=== PATIENT | female | born 1930 | race Asian ===

== ENCOUNTER 2018-07-09 14:18 | Inpatient (IN) | payer OTHER ==
[2018-07-09] MEDS: ONDANSETRON (ODT) 4 MG TAB ODT (15:19)
[2018-07-09] MEDS: HYDROmorphONE 0.5 MG/0.5 ML SYG IM (15:20)
[2018-07-09] MEDS ORDERED: SOD CHLORIDE 0.9% 1,000 ML IV (17:32)
[2018-07-09] MEDS ORDERED: ONDANSETRON 4 MG INJ IV (18:00)
[2018-07-09] MEDS ORDERED: ACETAMINOPHEN 325 MG TAB PO (18:00)
[2018-07-09] MEDS ORDERED: HYDROCODONE/APAP (5/325) TAB PO (19:30)
[2018-07-09] MEDS ORDERED: IBUPROFEN 600 MG TAB PO (19:30)
[2018-07-09 19:39] LABS: ADD MAN DIFF? NO
[2018-07-09 19:42] LABS: BASOPHIL # 0.1 10^3/ul (0.0-0.1); BASOPHILS % 0.5 % (0.0-2.0); EOSINOPHILS # 0.1 10^3/ul (0.0-0.5); EOSINOPHILS % 1.4 % (0.0-7.0); HEMATOCRIT 45.6 % (37.0-47.0); HEMOGLOBIN 14.8 g/dl (12.0-16.0); LYMPHOCYTES # 1.5 10^3/ul (0.8-2.9); LYMPHOCYTES % 14.9 % (15.0-51.0); MEAN CORPUSCULAR HEMOGLOBIN 30.1 pg (29.0-33.0); MEAN CORPUSCULAR HGB CONC 32.5 g/dl (32.0-37.0); MEAN CORPUSCULAR VOLUME 92.9 fl (82.0-101.0); MEAN PLATELET VOLUME 9.3 fl (7.4-10.4); MONOCYTE # 0.5 10^3/ul (0.3-0.9); MONOCYTES % 5.5 % (0.0-11.0); NEUTROPHIL # 7.5 10^3/ul (1.6-7.5); NEUTROPHILS % 77.1 % (39.0-77.0); PLATELET COUNT 305 10^3/UL (140-415); RED BLOOD COUNT 4.91 10^6/ul (4.20-5.40); RED CELL DISTRIBUTION WIDTH 13.8 % (11.5-14.5)
[2018-07-09 19:42] LABS: WHITE BLOOD COUNT 9.7 10^3/ul (4.8-10.8)
[2018-07-09 20:03] LABS: ALANINE AMINOTRANSFERASE 16 IU/L (13-69); ALBUMIN 3.8 g/dl (3.3-4.9); ALKALINE PHOSPHATASE 130 IU/L (42-121); ANION GAP 8 (5-13); ASPARTATE AMINO TRANSFERASE 22 IU/L (15-46); BILIRUBIN,INDIRECT 0.7 mg/dl (0-1.1); BILIRUBIN,TOTAL 0.7 mg/dl (0.2-1.3); BLOOD UREA NITROGEN 13 mg/dl (7-20); CALCIUM 10.9 mg/dl (8.4-10.2); CARBON DIOXIDE 25 mmol/L (21-31); CHLORIDE 105 mmol/L (97-110); CREATININE 0.56 mg/dl (0.44-1.00); GLUCOSE 146 mg/dl (70-220); POTASSIUM 4.8 mmol/L (3.5-5.1); SODIUM 138 mmol/L (135-144); TOTAL PROTEIN 7.6 g/dl (6.1-8.1)
[2018-07-09 20:05] LABS: INR 0.99; PROTIME 13.2 Sec (11.9-14.9)
[2018-07-10] MEDS: ACETAMINOPHEN 325 MG TAB PO (03:45)
[2018-07-10 06:09] LABS: ADD MAN DIFF? NO
[2018-07-10 06:26] LABS: BASOPHIL # 0.1 10^3/ul (0.0-0.1); BASOPHILS % 0.4 % (0.0-2.0); EOSINOPHILS # 0.2 10^3/ul (0.0-0.5); EOSINOPHILS % 1.5 % (0.0-7.0); HEMATOCRIT 42.4 % (37.0-47.0); HEMOGLOBIN 14.1 g/dl (12.0-16.0); LYMPHOCYTES # 1.2 10^3/ul (0.8-2.9); LYMPHOCYTES % 11.1 % (15.0-51.0); MEAN CORPUSCULAR HEMOGLOBIN 30.3 pg (29.0-33.0); MEAN CORPUSCULAR HGB CONC 33.3 g/dl (32.0-37.0); MEAN CORPUSCULAR VOLUME 91.2 fl (82.0-101.0); MEAN PLATELET VOLUME 9.6 fl (7.4-10.4); MONOCYTE # 0.8 10^3/ul (0.3-0.9); MONOCYTES % 6.8 % (0.0-11.0); NEUTROPHIL # 8.9 10^3/ul (1.6-7.5); NEUTROPHILS % 79.7 % (39.0-77.0); PLATELET COUNT 308 10^3/UL (140-415); RED BLOOD COUNT 4.65 10^6/ul (4.20-5.40); RED CELL DISTRIBUTION WIDTH 13.9 % (11.5-14.5)
[2018-07-10 06:26] LABS: WHITE BLOOD COUNT 11.2 10^3/ul (4.8-10.8)
[2018-07-10 06:43] LABS: HEMOGLOBIN A1C 7.3 % (0-5.9)
[2018-07-10 07:06] LABS: ALANINE AMINOTRANSFERASE 15 IU/L (13-69); ALBUMIN 3.5 g/dl (3.3-4.9); ALKALINE PHOSPHATASE 114 IU/L (42-121); ANION GAP 8 (5-13); ASPARTATE AMINO TRANSFERASE 23 IU/L (15-46); BILIRUBIN,INDIRECT 0.5 mg/dl (0-1.1); BILIRUBIN,TOTAL 0.5 mg/dl (0.2-1.3); BLOOD UREA NITROGEN 13 mg/dl (7-20); CALCIUM 11.1 mg/dl (8.4-10.2); CARBON DIOXIDE 25 mmol/L (21-31); CHLORIDE 104 mmol/L (97-110); CREATININE 0.66 mg/dl (0.44-1.00); GLUCOSE 230 mg/dl (70-220); POTASSIUM 4.6 mmol/L (3.5-5.1); SODIUM 137 mmol/L (135-144)
[2018-07-10] MEDS ORDERED: DEXTROSE 50% 50 ML SYRINGE IV ×2 (09:30)
[2018-07-10] MEDS ORDERED: GLUCOSE GEL 15 GRAM TUBE PO ×2 (09:30)
[2018-07-10] MEDS ORDERED: GLUCAGON 1 MG INJ IM (09:30)
[2018-07-10] MEDS ORDERED: GLUCOSE GEL 15 GRAM TUBE BUCCAL (09:30)
[2018-07-10] MEDS: LINAGLIPTIN 5 MG TABLET PO (09:32)
[2018-07-10] MEDS: morphine 2 MG INJ IV ×2 (09:36→15:11)
[2018-07-10] MEDS: ZOLEDRONIC ACID IVPB (11:18)
[2018-07-10] MEDS: SOD CHLORIDE 0.9% IVPB (11:18)
[2018-07-10] MEDS: INSULIN ASPART [NOVOLOG] 3 ML PEN SC ×3 (12:00→21:00)
[2018-07-11] MEDS: INSULIN ASPART [NOVOLOG] 3 ML PEN SC ×4 (08:00→21:00)
[2018-07-11] MEDS: LINAGLIPTIN 5 MG TABLET PO (08:13)
[2018-07-12] MEDS: INSULIN ASPART [NOVOLOG] 3 ML PEN SC ×4 (07:51→21:00)
[2018-07-12] MEDS: LINAGLIPTIN 5 MG TABLET PO (07:53)
[2018-07-12] MEDS: NACL 0.9% 3 ML SYG IV (07:54)
[2018-07-12 11:41] LABS: ADD UMIC YES; UR ASCORBIC ACID NEGATIVE (NEGATIVE); UR BACTERIA FEW /HPF (NONE SEEN); UR BILIRUBIN (Dip) NEGATIVE (NEGATIVE); UR BLOOD (Dip) NEGATIVE (NEGATIVE); UR CLARITY CLOUDY (CLEAR); UR COLOR AMBER (YELLOW); UR GLUCOSE (Dip) NEGATIVE (NEGATIVE); UR KETONES (Dip) 1+ mg/dL (NEGATIVE); UR LEUKOCYTE ESTERASE (Dip) TRACE Leu/ul (NEGATIVE); UR NITRITE (Dip) NEGATIVE (NEGATIVE); UR RBC 1 /HPF (0-5); UR SPECIFIC GRAVITY (Dip) 1.017 (1.003-1.030); UR TOTAL PROTEIN (Dip) NEGATIVE (NEGATIVE); UR UROBILINOGEN (Dip) 2+ mg/dL (NEGATIVE); UR WBC 2 /HPF (0-5)
[2018-07-12] MEDS: SOD CHLORIDE 0.9% 1,000 ML IV (14:28)
[2018-07-12] MEDS: ACETAMINOPHEN 325 MG TAB PO (21:16)
[2018-07-12] MEDS: HEPARIN 5,000 UNIT/1 ML VIAL SC (21:18)
[2018-07-13 05:48] LABS: ADD MAN DIFF? NO
[2018-07-13 05:49] LABS: WHITE BLOOD COUNT 8.4 10^3/ul (4.8-10.8)
[2018-07-13 05:49] LABS: BASOPHILS % 0.4 % (0.0-2.0); EOSINOPHILS # 0.2 10^3/ul (0.0-0.5); EOSINOPHILS % 2.2 % (0.0-7.0); HEMATOCRIT 41.2 % (37.0-47.0); HEMOGLOBIN 13.6 g/dl (12.0-16.0); LYMPHOCYTES # 1.6 10^3/ul (0.8-2.9); LYMPHOCYTES % 18.9 % (15.0-51.0); MEAN CORPUSCULAR HEMOGLOBIN 30.2 pg (29.0-33.0); MEAN CORPUSCULAR VOLUME 91.4 fl (82.0-101.0); MEAN PLATELET VOLUME 10.1 fl (7.4-10.4); MONOCYTES % 11.8 % (0.0-11.0); NEUTROPHIL # 5.5 10^3/ul (1.6-7.5); NEUTROPHILS % 65.5 % (39.0-77.0); PLATELET COUNT 290 10^3/UL (140-415); RED BLOOD COUNT 4.51 10^6/ul (4.20-5.40); RED CELL DISTRIBUTION WIDTH 13.7 % (11.5-14.5)
[2018-07-13 06:29] LABS: ANION GAP 7 (5-13); BLOOD UREA NITROGEN 13 mg/dl (7-20); CALCIUM 9.3 mg/dl (8.4-10.2); CARBON DIOXIDE 23 mmol/L (21-31); CHLORIDE 108 mmol/L (97-110); CREATININE 0.53 mg/dl (0.44-1.00); GLUCOSE 122 mg/dl (70-220); MAGNESIUM 2.2 mg/dl (1.7-2.5); POTASSIUM 4.4 mmol/L (3.5-5.1); SODIUM 138 mmol/L (135-144)
[2018-07-13] MEDS: INSULIN ASPART [NOVOLOG] 3 ML PEN SC ×4 (07:57→20:37)
[2018-07-13] MEDS: LINAGLIPTIN 5 MG TABLET PO (08:17)
[2018-07-13] MEDS: HEPARIN 5,000 UNIT/1 ML VIAL SC ×2 (08:18→20:36)
[2018-07-13] MEDS: MAGNESIUM CITRATE 300 ML BTL PO (12:40)
[2018-07-13] MEDS: CEFTRIAXONE 1 GM/50 ML (PMX) 50 ML IVPB (12:40)
[2018-07-13] MEDS: ACETAMINOPHEN 325 MG TAB PO (18:31)
[2018-07-13] MEDS: DOCUSATE SODIUM 100 MG CAP PO (20:35)
[2018-07-13] MEDS: LACTOBACILLUS RHAMNOSUS CAP PO (20:36)
== END 2018-07-13 22:30 | DRG 543 ==
LOC: E/R 14:18 → 2NE 17:34
DX: M80.08XA Age-related osteoporosis with current pathological fracture, vertebra(e), initial encounter for fracture (principal); N39.0 Urinary tract infection, site not specified; E21.0 Primary hyperparathyroidism; I10 Essential (primary) hypertension; E11.9 Type 2 diabetes mellitus without complications; M17.11 Unilateral primary osteoarthritis, right knee; Z95.0 Presence of cardiac pacemaker; Z87.891 Personal history of nicotine dependence; Z88.0 Allergy status to penicillin; Z85.3 Personal history of malignant neoplasm of breast
CPT/HCPCS: 71100; 72131; 73562; 80048; 80053; 81001; 82962; 83036; 83735; 85025; 85610; 87086; 93005; 93306; 96372; 97110; 97116; 97162; 97165; 97530; 99285-25

== ENCOUNTER 2018-10-02 08:08 | Inpatient (IN) | payer OTHER ==
[2018-10-02 09:49] LABS: ADD MAN DIFF? NO
[2018-10-02] MEDS: SOD CHLORIDE 0.9% 1,000 ML IV (09:52)
[2018-10-02] MEDS: ENOXAPARIN 80 MG/0.8 ML SYG SC ×2 (09:53→21:14)
[2018-10-02 09:54] LABS: BASOPHIL # 0.1 10^3/ul (0.0-0.1); BASOPHILS % 0.6 % (0.0-2.0); EOSINOPHILS # 0.2 10^3/ul (0.0-0.5); HEMATOCRIT 43.4 % (37.0-47.0); HEMOGLOBIN 14.2 g/dl (12.0-16.0); LYMPHOCYTES # 1.4 10^3/ul (0.8-2.9); LYMPHOCYTES % 15.2 % (15.0-51.0); MEAN CORPUSCULAR HEMOGLOBIN 30.4 pg (29.0-33.0); MEAN CORPUSCULAR HGB CONC 32.7 g/dl (32.0-37.0); MEAN CORPUSCULAR VOLUME 92.9 fl (82.0-101.0); MEAN PLATELET VOLUME 9.6 fl (7.4-10.4); MONOCYTE # 0.9 10^3/ul (0.3-0.9); MONOCYTES % 10.1 % (0.0-11.0); NEUTROPHIL # 6.4 10^3/ul (1.6-7.5); NEUTROPHILS % 71.3 % (39.0-77.0); PLATELET COUNT 313 10^3/UL (140-415); RED BLOOD COUNT 4.67 10^6/ul (4.20-5.40)
[2018-10-02 10:08] LABS: ALANINE AMINOTRANSFERASE 44 IU/L (13-69); ALBUMIN 3.6 g/dl (3.3-4.9); ALBUMIN/GLOBULIN RATIO 0.97; ALKALINE PHOSPHATASE 112 IU/L (42-121); ANION GAP 6 (5-13); ASPARTATE AMINO TRANSFERASE 42 IU/L (15-46); BILIRUBIN,INDIRECT 0.8 mg/dl (0-1.1); BILIRUBIN,TOTAL 0.8 mg/dl (0.2-1.3); BLOOD UREA NITROGEN 11 mg/dl (7-20); CALCIUM 11.1 mg/dl (8.4-10.2); CARBON DIOXIDE 30 mmol/L (21-31); CHLORIDE 103 mmol/L (97-110); CREATININE 0.65 mg/dl (0.44-1.00); GLUCOSE 141 mg/dl (70-220); LIPASE 61 U/L (23-300); POTASSIUM 4.7 mmol/L (3.5-5.1); SODIUM 139 mmol/L (135-144); TOTAL PROTEIN 7.3 g/dl (6.1-8.1)
[2018-10-02 10:19] LABS: TROPONIN-I < 0.012 ng/ml (0.000-0.120)
[2018-10-02] MEDS ORDERED: BISACODYL 10 MG SUPP PR (13:00)
[2018-10-02] MEDS ORDERED: LORAZEPAM 0.5 MG TAB PO (13:00)
[2018-10-02] MEDS ORDERED: ONDANSETRON 4 MG TAB PO (13:00)
[2018-10-02] MEDS ORDERED: DOCUSATE SODIUM 100 MG CAP PO (13:00)
[2018-10-02] MEDS ORDERED: NACL 0.9% 3 ML SYG IV (13:00)
[2018-10-02] MEDS ORDERED: HYDROCODONE/APAP (5/325) TAB PO (13:00)
[2018-10-02] MEDS: LINAGLIPTIN 5 MG TABLET PO (13:34)
[2018-10-02] MEDS: ACCU-CHEK XX ×3 (13:34→20:00)
[2018-10-02] MEDS: CINACALCET 30 MG TAB PO (17:14)
[2018-10-02] MEDS: FAMOTIDINE 20 MG TAB PO (21:06)
[2018-10-03 06:05] LABS: ADD MAN DIFF? NO
[2018-10-03 06:13] LABS: WHITE BLOOD COUNT 9.1 10^3/ul (4.8-10.8)
[2018-10-03 06:13] LABS: BASOPHIL # 0.1 10^3/ul (0.0-0.1); BASOPHILS % 0.5 % (0.0-2.0); EOSINOPHILS # 0.2 10^3/ul (0.0-0.5); EOSINOPHILS % 1.8 % (0.0-7.0); HEMOGLOBIN 12.7 g/dl (12.0-16.0); LYMPHOCYTES # 1.8 10^3/ul (0.8-2.9); LYMPHOCYTES % 20.2 % (15.0-51.0); MEAN CORPUSCULAR HEMOGLOBIN 30.4 pg (29.0-33.0); MEAN CORPUSCULAR HGB CONC 32.6 g/dl (32.0-37.0); MEAN CORPUSCULAR VOLUME 93.3 fl (82.0-101.0); MONOCYTE # 0.9 10^3/ul (0.3-0.9); MONOCYTES % 10.3 % (0.0-11.0); PLATELET COUNT 311 10^3/UL (140-415); RED BLOOD COUNT 4.18 10^6/ul (4.20-5.40); RED CELL DISTRIBUTION WIDTH 14.1 % (11.5-14.5)
[2018-10-03 06:56] LABS: ALANINE AMINOTRANSFERASE 38 IU/L (13-69); ALKALINE PHOSPHATASE 99 IU/L (42-121); ANION GAP 6 (5-13); ASPARTATE AMINO TRANSFERASE 29 IU/L (15-46); BILIRUBIN,INDIRECT 0.6 mg/dl (0-1.1); BILIRUBIN,TOTAL 0.6 mg/dl (0.2-1.3); BLOOD UREA NITROGEN 13 mg/dl (7-20); CALCIUM 10.5 mg/dl (8.4-10.2); CARBON DIOXIDE 28 mmol/L (21-31); CHLORIDE 106 mmol/L (97-110); CREATININE 0.61 mg/dl (0.44-1.00); GLUCOSE 120 mg/dl (70-220); MAGNESIUM 1.9 mg/dl (1.7-2.5); POTASSIUM 4.5 mmol/L (3.5-5.1); SODIUM 140 mmol/L (135-144); TOTAL PROTEIN 6.3 g/dl (6.1-8.1)
[2018-10-03 07:06] LABS: HEMOGLOBIN A1C 6.4 % (0-5.9)
[2018-10-03] MEDS: ACCU-CHEK XX ×6 (08:14→20:00)
[2018-10-03] MEDS: CINACALCET 30 MG TAB PO (09:09)
[2018-10-03] MEDS: LINAGLIPTIN 5 MG TABLET PO (09:09)
[2018-10-03] MEDS: FAMOTIDINE 20 MG TAB PO ×2 (09:09→20:23)
[2018-10-03] MEDS: ENOXAPARIN 80 MG/0.8 ML SYG SC ×2 (09:17→20:27)
[2018-10-04] MEDS: ACCU-CHEK XX ×6 (07:00→21:44)
[2018-10-04] MEDS: LINAGLIPTIN 5 MG TABLET PO (08:17)
[2018-10-04] MEDS: CINACALCET 30 MG TAB PO (08:17)
[2018-10-04] MEDS: FAMOTIDINE 20 MG TAB PO ×2 (08:18→21:44)
[2018-10-04] MEDS: ENOXAPARIN 80 MG/0.8 ML SYG SC ×2 (08:27→22:01)
[2018-10-05] MEDS: ACCU-CHEK XX ×6 (06:48→20:28)
[2018-10-05] MEDS: FAMOTIDINE 20 MG TAB PO ×2 (08:13→20:28)
[2018-10-05] MEDS: CINACALCET 30 MG TAB PO (08:13)
[2018-10-05] MEDS: ENOXAPARIN 80 MG/0.8 ML SYG SC ×2 (08:15→20:30)
[2018-10-05] MEDS: LINAGLIPTIN 5 MG TABLET PO (09:57)
[2018-10-05] MEDS: ACETAMINOPHEN 325 MG TAB PO (17:50)
== END 2018-10-05 21:00 | DRG 301 ==
LOC: E/R 08:08 → 6WM 09:29
DX: I82.412 Acute embolism and thrombosis of left femoral vein (principal); I82.432 Acute embolism and thrombosis of left popliteal vein; E21.0 Primary hyperparathyroidism; I10 Essential (primary) hypertension; E11.9 Type 2 diabetes mellitus without complications; M80.88XD Other osteoporosis with current pathological fracture, vertebra(e), subsequent encounter for fracture with routine healing; M48.50XD Collapsed vertebra, not elsewhere classified, site unspecified, subsequent encounter for fracture with routine healing; Z95.0 Presence of cardiac pacemaker; Z74.01 Bed confinement status; Z90.11 Acquired absence of right breast and nipple; Z88.0 Allergy status to penicillin; Z85.3 Personal history of malignant neoplasm of breast
CPT/HCPCS: 36415; 71045; 80053; 82962; 83036; 83690; 83735; 84484; 85025; 93005; 93971; 97110; 97162; 97530; 99285-25